=== PATIENT | female | born 1970 ===

== ENCOUNTER 2017-07-26 19:22 | Emergency (ER) | payer SELFPAY ==
[2017-07-26 19:37] VITALS: BP 135/86; PULSE 97; RESP 18; TEMP 96.9; O2SAT 99
[2017-07-26] MEDS ORDERED: SULFAMETHOXAZOLE/TRIMETHOPRI 800/160 MG ONE (19:59)
[2017-07-26] MEDS: SULFAMETHOXAZOLE/TRIMETHOPRI 800/160 MG PO ONE (20:02)
== END 2017-07-26 20:20 | disposition home or self-care (01) | DRG 153 ==
LOC: ED 19:22
DX: J01.90 Acute sinusitis, unspecified (principal)
CPT/HCPCS: 99282; A9270-GY